=== PATIENT | female | born 2005 | race Caucasian/White ===

== ENCOUNTER → 2024-09-27 | Outpatient (CLI) | payer OTHER ==
[2024-09-27 18:27] LABS: Basophils # (A) 0.13 X 10*3/uL (0.00-0.10); Eosinophils # (A) 0.16 X 10*3/uL (0.04-0.35); Eosinophils % (A) 2.4 %; HCT 40.2 % (37.2-46.3); HGB 12.9 g/dL (12.0-15.0); Lymphocytes # (A) 1.94 X 10*3/uL (0.90-5.00); Lymphocytes % (A) 29.5 %; MCH 27.6 pg (27.0-32.0); MCHC 32.1 g/dL (32.0-37.0); MCV 86.1 FL (80.0-97.0); Mean Platelet Volume 9.8 FL (9.5-12.2); Monocytes # (A) 0.44 X 10*3/uL (0.20-1.00); Monocytes % (A) 6.7 %; NRBC Per 100 WBC 0 X 10*3/uL (0.00-0.01); Neutrophils % (A) 59.2 %; Platelet Count 320 X 10*3/uL (140-440); RBC 4.67 X 10*6/uL (4.10-5.20); RDW 12.9 % (11.5-14.5); WBC 6.58 X 10*3/uL (4.50-10.00)
[2024-09-27 18:35] LABS: Microalbumin Creatinine Ratio <10 mg/g Cr (0-30)
[2024-09-27 19:20] LABS: Appearance,Urine Turbid (Clear); Bilirubin,Urine Negative (Negative); Blood,Urine Negative (Negative); Color,Urine Yellow (Yellow); Ketones,Urine Negative (Negative); Nitrite,Urine Negative (Negative); PH, Urine 8.5; Specific Gravity,Urine 1.021 (1.001-1.030); Urobilinogen,Urine 0.2 E.U./DL
[2024-09-27 19:33] LABS: ALT 19 U/L (8-44); AST 23 U/L (13-35); Albumin 4.6 g/dL (3.8-4.9); Albumin/Globulin Ratio 1.77 Ratio (1.60-3.17); Alkaline Phosphatase 58 U/L (41-126); BUN/Creat Ratio 21.29 Ratio (12.00-20.00); Blood Urea Nitrogen 14.9 mg/dL (9.0-27.0); Calcium 9.2 mg/dL (8.7-10.3); Carbon Dioxide 24.5 mmol/L (21.6-31.8); Chloride 104 mmol/L (96-109); Globulin 2.6 g/dL (1.6-3.3); Glucose 68 mg/dL (70-110); Magnesium 2.2 mg/dL (1.5-2.4); Phosphorus 3.3 mg/dL (2.4-5.1); Potassium 4.2 mmol/L (3.5-5.5); Sodium 139 mmol/L (135-145); Total Bilirubin <0.2 mg/dL (0.3-1.2); Total Protein 7.2 g/dL (6.2-8.2)
[2024-09-27 19:56] LABS: Bacteria,Urine None Seen (None Seen)
[2024-09-27 20:04] LABS: Triple Phosphate Crystal,Urine Present
== END | disposition home or self-care (01) ==
LOC: LABWHC1 14:19
PROVIDERS: ATTEND Internal Medicine
DX: N18.9 Chronic kidney disease, unspecified (principal)
CPT/HCPCS: 36415; 80053; 81001; 82043; 82570; 83735; 84100; 85025